=== PATIENT | female | born 1955 | race Caucasian/White ===

== ENCOUNTER 2020-05-23 04:03 | Emergency (ER) | payer BC ==
[~2020-05-23] VITALS: Ht 160 cm; Wt 100.0 kg
[2020-05-23] MEDS ORDERED: ondansetron/PF 4mg/2ml inj IV ONE (04:30)
[2020-05-23] MEDS ORDERED: ketorolac trometh. 30mg/ml inj. IV ONE (04:30)
[2020-05-23 04:35] LABS: CLARITY,URINE CLEAR (Clear); COLOR,URINE YELLOW (Yellow); GLUCOSE, URINE NEGATIVE (Neg); KETONES,URINE NEGATIVE (Neg); LEUKOCYTE ESTERASE ,URINE NEGATIVE (Neg); NITRITES, URINE NEGATIVE (Neg); OCCULT BLOOD,URINE NEGATIVE (Neg); PROTEIN,URINE NEGATIVE (Neg); UROBILINOGEN,URINE 0.2 E.U/dL (0.2-1.0)
[2020-05-23 04:38] LABS: UA COLLECTION TYPE CLN CATCH MIDSTREAM
[2020-05-23 05:13] LABS: BASOPHILS % (AUTO) 0.5 % (0-1); EOSINOPHILS # (AUTO) 0.3 X10'3 (0-0.9); EOSINOPHILS % (AUTO) 3.1 % (0-6); HEMATOCRIT 40.1 % (35.0-45.0); HEMOGLOBIN 13.5 g/dl (12.0-16.0); LYMPHOCYTES # (AUTO) 1.7 X10'3 (1.1-4.8); LYMPHOCYTES % (AUTO) 18.4 % (21-51); MEAN CORPUSCULAR HEMOGLOBIN 32.1 PG (27.0-31.0); MEAN CORPUSCULAR HGB CONC 33.6 g/dL (33.0-36.5); MEAN CORPUSCULAR VOLUME 95.5 FL (78-98); MEAN PLATELET VOLUME 8.7 FL (7.4-10.4); MONOCYTES # (AUTO) 0.6 X10'3 (0-0.9); MONOCYTES % (AUTO) 6.4 % (2-12); NEUTROPHILS # (AUTO) 6.5 X10'3 (1.8-7.7); NEUTROPHILS % (AUTO) 71.6 % (42-75); PLATELET COUNT 220 X10'3 (140-440); RED CELL DISTRIBUTION WIDTH 13.9 % (11.5-14.5); WHITE BLOOD COUNT 9.1 X10'3 (4.5-11.0)
[2020-05-23] MEDS ORDERED: normal saline 1000ML IV soln IVB ONE (05:15)
[2020-05-23] MEDS ORDERED: magnesium citrate 296ml oral solution PO ONE (05:15)
[2020-05-23 05:24] LABS: ALANINE AMINOTRANSFERASE 37 U/L (12-78); ALBUMIN 3.5 G/DL (3.4-5.0); ALKALINE PHOSPHATASE 44 IU/L (46-116); ANION GAP 7 (8-16); ASPARTATE AMINO TRANSFERASE 25 U/L (10-37); BILIRUBIN,TOTAL 0.2 MG/DL (0.1-1.0); BLOOD UREA NITROGEN 27 MG/DL (7-18); BUN/CREATININE RATIO 22.7 (6.6-38.0); CALCIUM 9.3 MG/DL (8.5-10.1); CHLORIDE 105 MMOL/L (99-107); CREATININE 1.19 MG/DL (0.40-0.90); GLUCOSE 132 MG/DL (70-104); LIPASE 1302 U/L (73-393); POTASSIUM 3.8 MMOL/L (3.5-5.1); SODIUM 141 MMOL/L (135-145); TOTAL CARBON DIOXIDE 29.5 MMOL/L (24-32); TOTAL PROTEIN 6.9 G/DL (6.4-8.2); eGFR 46 ML/MIN
[2020-05-23 06:57] VITALS: BP 159/91
== END 2020-05-23 07:15 | disposition home or self-care (01) ==
LOC: ER 04:05
DX: N83.202 Unspecified ovarian cyst, left side (principal); K59.00 Constipation, unspecified; K80.20 Calculus of gallbladder without cholecystitis without obstruction; R42 Dizziness and giddiness; Z88.0 Allergy status to penicillin
CPT/HCPCS: 36415; 74176; 80053; 81003; 83690; 85025; 96374; 96375; 99284; J1885; J2405; J7030

== ENCOUNTER 2025-01-15 22:43 | Emergency (ER) | payer MEDICARE, BC ==
[~2025-01-15] VITALS: Ht 162.6 cm; Wt 113.0 kg
[2025-01-15 22:54] VITALS: BP 140/94; PULSE 92; RESP 22; O2SAT 96
[2025-01-15] MEDS ORDERED: PRED20TA PO (23:09)
[2025-01-15] MEDS ORDERED: DIPH25CA83 PO (23:09)
[2025-01-15 23:15] VITALS: TEMP 99.4
[2025-01-15] MEDS: diphenhydrAMINE 25mg capsule PO ONE (23:21)
[2025-01-15] MEDS: predniSONE 20 mg tablet PO ONE (23:21)
== END 2025-01-15 23:26 | disposition home or self-care (01) ==
LOC: ER 22:44
DX: T78.40XA Allergy, unspecified, initial encounter (principal); Z88.0 Allergy status to penicillin; X58.XXXA Exposure to other specified factors, initial encounter
CPT/HCPCS: 99283; J7512; Q0163